=== PATIENT | female | born 1995 | race Caucasian/White ===

== ENCOUNTER 2019-11-26 19:03 | Emergency (ER) | payer BC, OTHER ==
[~2019-11-26] VITALS: Ht 165.1 cm; Wt 104.3 kg
[2019-11-28] MEDS ORDERED: TOBRADEX EYE DRO5 ML OPTH (03:26)
[2019-11-28] MEDS ORDERED: NORCO 5-325 TA1 EACH PO (03:26)
[2019-11-28] MEDS ORDERED: AUGMENTIN 875-1 EACH PO (03:26)
[2019-11-28] MEDS ORDERED: BACTRIM DS TAB1 EACH PO (03:26)
== END 2019-11-26 22:00 | disposition home or self-care (01) ==
LOC: ED 19:03
DX: H10.32 Unspecified acute conjunctivitis, left eye (principal)
CPT/HCPCS: 99283

== ENCOUNTER 2021-07-14 01:19 | Inpatient (IN) | payer OTHER ==
[~2021-07-14] VITALS: Ht 165.1 cm; Wt 112.5 kg
[~2021-07-14 01:19] MED LIST: AUGMENTIN 875-1 EACH PO; BACTRIM DS TAB1 EACH PO; NORCO 5-325 TA1 EACH PO; TOBRADEX EYE DRO5 ML OPTH
--- NOTE | 2021-07-14 01:59 | NUR ---
COVID SWAB DONE TO BOTH NARES AND SENT TO IN HOUSE LAB.
--- NOTE | 2021-07-14 03:42 | NUR ---
Called to attend delivery of with risk factors. I confirmed proper equipment and functionality. Ne[place]uff set to 25/4, suction intact with appropiate pressures set, selfinflating bag attached to 10 lpm O2, oximter probe set up and ready for use. upon delivery the was placed on the mother and shortly thereafter began to cry. Once baby was vigourausly crying and no indication to bring to the warmer RN's released me.
--- NOTE | 2021-07-14 09:35 | PR ---
[facility] [address] [facility] [place], [place] [address] Signed PP Progress Notes Datetime Report Generated by CPN: 07/14/2021 09:35 SUBJECTIVE: [id number] Pain: Within Normal Limits Nausea/Vomiting: Denies Vital Signs: [id number] Vital Signs: Reviewed; Within Normal Limits EXAM: Ongoing Abdomen/Uterus: Normal Lochia: Normal Extremities: Normal IMPRESSION/PLAN/PROCEDURES: [id number] Impression: Normal Progression Plan: Continue Present Management Progress Notes: Doing well, without complaint. Resting comfortably. Signing Physician: Comfort Valdovinos MD Copies: ~ *Electronically Signed* 07/14/21 0935 COMFORT VALDOVINOS MD PATIENT NAME: ROSELINE PRAKASH PROGRESS NOTE DATE OF : 96 PHYSICIAN: COMFORT VALDOVINOS MD RPT #: [id number] REPORT IS CONFIDENTIAL AND NOT TO BE RELEASED WITHOUT AUTHORIZATION
--- NOTE | 2021-07-15 10:55 | PR ---
[facility] [address] [facility] [place] [address] Signed PP Progress Notes Datetime Report Generated by CPN: 07/15/2021 10:55 SUBJECTIVE: [id number] Pain: Within Normal Limits Nausea/Vomiting: Denies Vital Signs: [id number] Vital Signs: Reviewed; Within Normal Limits Notable Details: PP Hgb/Hct = 8.4/26.1 EXAM: Ongoing Abdomen/Uterus: Normal Lochia: Normal Extremities: Normal IMPRESSION/PLAN/PROCEDURES: [id number] Impression: Normal Progression Plan: Discharge Procedures: None Progress Notes: Doing well, without complaint, but baby needs to stay. Signing Physician: Comfort Valdovinos MD Copies: ~ *Electronically Signed* 07/15/21 1055 COMFORT VALDOVINOS MD PATIENT NAME: ROSELINE PRAKASH PROGRESS NOTE DATE OF : 96 PHYSICIAN: COMFORT VALDOVINOS MD RPT #: [id number] REPORT IS CONFIDENTIAL AND NOT TO BE RELEASED WITHOUT AUTHORIZATION
== END 2021-07-15 14:15 | disposition home or self-care (01) | DRG 806 ==
LOC: FBCO 01:19 → FBC 01:40
PROVIDERS: ADMIT General Practice; ATTEND General Practice
PROC: 10E0XZZ Delivery of Products of Conception, External Approach (ICD-10-PCS; principal; 2021-07-14)
PROC: 0KQM0ZZ Repair Perineum Muscle, Open Approach (ICD-10-PCS; 2021-07-14)
DX: O62.3 Precipitate labor (principal); O99.324 Drug use complicating childbirth; Z37.0 Single live birth; D62 Acute posthemorrhagic anemia; Z3A.38 38 weeks gestation of pregnancy; O70.1 Second degree perineal laceration during delivery; O99.334 Smoking (tobacco) complicating childbirth; F17.210 Nicotine dependence, cigarettes, uncomplicated; Z67.20 Type B blood, Rh positive; F15.90 Other stimulant use, unspecified, uncomplicated; O99.03 Anemia complicating the puerperium; F12.90 Cannabis use, unspecified, uncomplicated; Z20.822 Contact with and (suspected) exposure to COVID-19
CPT/HCPCS: 01960; 36415; 85027; 86850; 86900; 86901; A9270; C9803; J2405; J2590; J2795; J3010; J7121; U0003

== ENCOUNTER 2022-05-13 19:25 | Emergency (ER) | payer BC, OTHER ==
[~2022-05-13] VITALS: Ht 165.1 cm; Wt 99.8 kg
[2022-05-13] MEDS ORDERED: LYLEQ0.35 MG PO (19:44)
== END 2022-05-13 22:00 | disposition home or self-care (01) ==
LOC: ED 19:25
DX: H60.91 Unspecified otitis externa, right ear (principal); B97.4 Respiratory syncytial virus as the cause of diseases classified elsewhere; F17.200 Nicotine dependence, unspecified, uncomplicated; Z79.899 Other long term (current) drug therapy; Z20.822 Contact with and (suspected) exposure to COVID-19
CPT/HCPCS: 87502; 99283; A9270; C9803; U0003

== ENCOUNTER 2023-06-01 05:41 | Inpatient (IN) | payer OTHER ==
[~2023-06-01] VITALS: Ht 165.1 cm; Wt 113.4 kg
[~2023-06-01 05:41] MED LIST changes: +LYLEQ0.35 MG PO
[2023-06-01 06:17] LABS: AMPHETAMINES, URINE NEGATIVE (NEGATIVE); BARBITURATES, URINE NEGATIVE (NEGATIVE); BENZODIAZEPINE, URINE NEGATIVE (NEGATIVE); BUPRENORPHINE, URINE NEGATIVE (NEGATIVE); CANNABINOID, URINE NEGATIVE (NEGATIVE); COCAINE, URINE NEGATIVE (NEGATIVE); ECSTASY, URINE NEGATIVE (NEGATIVE); FENTANYL, URINE NEGATIVE (NEGATIVE); METHADONE, URINE NEGATIVE (NEGATIVE); OPIATES, URINE NEGATIVE (NEGATIVE); OXYCODONE, URINE NEGATIVE (NEGATIVE); PHENCYCLIDINE, URINE NEGATIVE (NEGATIVE)
[2023-06-01 06:32] LABS: HEMATOCRIT 39.7 % (35.0-50.0); HEMOGLOBIN 13.5 g/dL (12.0-18.0); MCH 31.8 (27-36); MCHC 34.1 g/dl (30-36); MCV 93.2 fl (81-99); RBC 4.25 M/ul (4.3-5.7); RDW 13.9 (10.5-15.0)
[2023-06-01 06:54] VITALS: BP 138/80
[2023-06-01 07:20] LABS: ABO B; ANTIBODY SCREEN NEGATIVE; RH POSITIVE
== END 2023-06-03 12:00 | disposition home or self-care (01) | DRG 806 ==
LOC: FBC 05:41
PROVIDERS: ADMIT Obstetrics & Gynecology; ATTEND Obstetrics & Gynecology
PROC: 10E0XZZ Delivery of Products of Conception, External Approach (ICD-10-PCS; principal; 2023-06-02)
PROC: 3E0R3BZ Introduction of Anesthetic Agent into Spinal Canal, Percutaneous Approach (ICD-10-PCS; 2023-06-02)
PROC: 00HU33Z Insertion of Infusion Device into Spinal Canal, Percutaneous Approach (ICD-10-PCS; 2023-06-02)
PROC: 10907ZC Drainage of Amniotic Fluid, Therapeutic from Products of Conception, Via Natural or Artificial Opening (ICD-10-PCS; 2023-06-02)
DX: O36.63X0 Maternal care for excessive fetal growth, third trimester, not applicable or unspecified (principal); O99.324 Drug use complicating childbirth; Z37.0 Single live birth; Z3A.40 40 weeks gestation of pregnancy; O99.824 Streptococcus B carrier state complicating childbirth; O63.1 Prolonged second stage (of labor); O76 Abnormality in fetal heart rate and rhythm complicating labor and delivery; O99.334 Smoking (tobacco) complicating childbirth; F17.210 Nicotine dependence, cigarettes, uncomplicated; F12.90 Cannabis use, unspecified, uncomplicated
CPT/HCPCS: 36415; 80307; 85027; 86850; 86900; 86901; A9270; J2540; J2795; J3010; J7121